=== PATIENT | female | born 1990 | race Caucasian/White ===

== ENCOUNTER 2023-02-26 14:56 | Outpatient (CLI) | payer OTHER, SELFPAY ==
[2023-02-26 15:22] VITALS: PULSE 81; O2SAT 97
[2023-02-26 15:26] VITALS: BP 111/73; PULSE 84
[2023-02-26 15:27] VITALS: PULSE 94; TEMP 36.6; O2SAT 97
[2023-02-26 16:21] LABS: Appearance Urine Cloudy (Clear); Bilirubin Urine Negative (Negative); Blood Urine Negative (Negative); Color Urine Yellow (Yellow); Glucose Urine Negative (Negative); Ketones Urine Negative (Negative); Leukocyte Esterase Urine Negative (Negative); Nitrite Urine Negative (Negative); Protein Urine Negative (Negative); Urobilinogen Urine 0.2 (0.2-1.0)
[2023-02-26 16:25] LABS: Clue Cells <20% Clue Cells Seen (None Seen); Trichomonas No Trichomonas Seen (None Seen); Yeast No Yeast Seen (None Seen)
[2023-02-26 16:30] LABS: RBC Urine 0-2 (0-2); Squamous Epithelial Cell Urine Few (None-Few)
[2023-02-26 16:31] LABS: Bacteria Urine Moderate
[2023-02-26 16:33] LABS: Amnisure Rom* Negative
--- NOTE | 2023-02-26 17:24 | PM.OBLDTN ---
OB - Triage/Final Diagnosis Visit Information Time Seen by Provider: 17:00 Date Seen: 02/26/23 Narrative: The patient is a 32 year old 3 para 0 at 31 weeks gestation who presents with question of leaking fluids. course is complicated by hyperemesis gravidarum, GERD, irritable bowel syndrome, interstitial cystitis, anxiety and depression. Litzy notes onset of increased thin and clear discharge for the last several days. She notes fluid will saturate her undergarments at time, but has not had a distinct gush. She denies any malodor or vulvovaginal itching/burning. She notes intermittent uterine cramps this morning, now resolved. She has baseline suprapubic pain that is most pronounced with a full bladder secondary to interstitial cystitis, which is ongoing but she additionally had some urinary urgency today. No fevers/chills, flank pain or worsening nausea/vomiting from her baseline with HG and GERD. No bowel concerns. No new sexual partners, no STI concerns. Evaluation Laboratory results: Laboratory Tests 02/26/23 Range/Units 15:32 Urine Color Yellow (Yellow) Urine Appearance Cloudy A (Clear) Urine pH 7.0 (5.0-8.5) Ur Specific [place] 1.020 (1.000-1.030) Urine Protein Negative (Negative) Urine Glucose (UA) Negative (Negative) Urine Ketones Negative (Negative) Urine Blood Negative (Negative) Urine Nitrite Negative (Negative) Urine Bilirubin Negative (Negative) Urine Urobilinogen 0.2 (0.2-1.0) Ur Leukocyte Esterase Negative (Negative) Urine RBC 0-2 (0-2) Urine WBC 2-5 (0-5) Ur Squamous Epith Cells Few (None-Few) Urine Bacteria Moderate A (None) Membrane Rupture Negative Vaginal Trichomonas No Trichomonas Seen (None Seen) Vaginal Yeast No Yeast Seen (None Seen) Vaginal Clue Cells <20% Clue Cells Seen (None Seen) Vital signs: Vital Signs - 24 hr 02/26/23 15:22 02/26/23 15:26 02/26/23 15:27 Temperature 97.9 F Pulse Rate 84 Blood Pressure 111/73 Pulse Oximetry 97 02/26/23 15:27 Temperature Pulse Rate Blood Pressure Pulse Oximetry 97 Comments: General: Alert and oriented, in no acute distress Psych: Appropriate mood and affect. Abdomen: Gravid. Otherwise soft and non-distended. Mild tenderness to palpation in the suprapubic region, patient notes this is her baseline. Pelvic: External genitalia within normal limits. Perineum dry. Sterile speculum exam performed, where there is small volume thin, white discharge in the vaginal vault. No malodor. Cervix appears pink with no cervicitis. Closed by visual inspection. No pooling or leaking of fluids with patient cough. UA: Bacteria present, but no significant WBC, leukocyte esterase or nitrites. Suspect skin contamination. Wet prep: Negative for yeast/trich. <20% clue cells suggests no BV. Amnisure: Negative NST: Reassuring for gestational age. Since variable deceleration noted early in monitoring period - normal baseline, moderate variability, accelerations present and no other decelerations. No contractions on tocometer Final Diagnosis (1) Vaginal discharge during in third trimester: Status: Acute Problem details: Ms. Crabtree is a 32yo seen at 31w3d GA for question of leaking of fluids. ANC complicated by hyperemesis gravidarum, GERD, anxiety, depression, IBS and interstitial cystitis. On exam, there is thin/white discharge in the vaginal vault that appears consistent with physiologic discharge of . No malodor or evidence of cervicitis. Wet prep negative for yeast, BV or trichomonas. Cervix appears closed, with no pooling of fluids nor fluid expression with patient cough. Amnisure negative. No evidence of PPROM nor vulvovaginitis on my exam today. With regard to her prior uterine cramping, baseline suprapubic pain and urinary urgency, UA is most consistent with skin contamination today by the presence of bacteria with 2-5 WBC and no leukocyte esterase or nitrites. Urine culture is pending, where we will call/prescribe treatment if this result is positive. Litzy notes her former cramping has resolved spontaneously, cervix appears closed and no contractions on tocometer. NST reassuring for gestational age. Recommend strict return precautions with new or worsening symptoms. If she notes persistent abnormal vaginal discharge, leaking of fluids, vaginal bleeding, contractions or decreased movement I recommend she call for urgent clinic add on visit vs return to triage. Patient expressed understanding and is comfortable with plan. (2) Hyperemesis: Status: Acute (3) GERD (gastroesophageal reflux disease): Status: Chronic (4) Irritable bowel syndrome: Status: Chronic Problem details: with constipation. Negative colonoscopy age 11. (5) Interstitial cystitis: Status: Acute
--- NOTE | 2023-02-26 19:05 | PC.OBNST ---
NST Note NST Note Start: 02/26/23 15:23 Freq: ONCE Status: Active Protocol: Document 02/26/23 19:02 MOSQUE (Rec: 02/26/23 19:05 MOSQUE [id number]) NST Note 3 Para (# of births) 0 EDC 04/27/23 Gestational Age In Weeks & Days 31 Weeks & 3 Days Patient Presented with Complaint(s) of Leaking fluid Other Complaints Patient had concerns about a watery discharge and some lower abdomen cramping occasionally Reactive Yes Appropriate for Gestational Age Yes SUSAN Peterson Date 02/26/23 Reactive Yes Appropriate for Gestational Age Yes SUSAN Whitaker Date 02/26/23 OB NST charge Yes Complete NST Note via Write Note Yes The provider's electronic signature indicates the NST is reactive/appropriate for gestational age. *Note to provider: If an addendum is required, open the patient's chart and click on the note under the Nurse/Allied Health tab.
== END 2023-02-26 17:30 | disposition home or self-care (01) ==
LOC: OB OUT 14:57 → OB 14:57
PROVIDERS: PCP Obstetrics & Gynecology; Visit Provider Obstetrics & Gynecology
DX: O47.03 False labor before 37 completed weeks of gestation, third trimester (principal); Z3A.31 31 weeks gestation of pregnancy
CPT/HCPCS: 59025; 81003; 81015; 84112; 87086; 87210; 99213

== ENCOUNTER 2023-03-07 08:17 | Outpatient (CLI) | payer OTHER, SELFPAY ==
--- NOTE | 2023-03-07 08:15 | CRLHL7_ITS ---
For Patients: As a result of the Century Cures Act, medical imaging exams and procedure reports are released immediately into your electronic medical record. You may view this report before your referring provider. If you have questions, please contact your health care provider. INDICATION: Third trimester scan, evaluate growth. COMPARISON: Report from 12/09/2022 TECHNIQUE: Real time corona scale imaging of the fetus was performed. FINDINGS: Sonographic imaging demonstrates a single living intrauterine gestation. Fetus demonstrates a regular cardiac rate of 137 beats per minute. Fetus has a vertex position. The placenta lies anterior fundal. Amniotic fluid volume appears normal and there is a single deepest vertical pocket: 6.0 cm. The estimated weight is 2357gm which lies at the 83rd %. BPD greater than 97th percentile. HC 93rd percentile. AC 90th percentile. FL 26th percentile. The HC/AC ratio measures 1.05 range (0.93-1.11). IMPRESSION: Sonographic gestational age 34 weeks 5 days and sonographic due date 04/13/2023. Sonographic age is 2 weeks ahead of the clinical age. Estimated weight 83rd percentile. Abdominal circumference 90th percentile. Dictated by Clifton Kebede MD @ 03/07/2023 12:11:47 PM (Electronically Signed)
== END 2023-03-07 08:18 | disposition home or self-care (01) ==
PROVIDERS: Visit Provider Obstetrics & Gynecology
DX: Z34.93 Encounter for supervision of normal pregnancy, unspecified, third trimester (principal); Z3A.34 34 weeks gestation of pregnancy
CPT/HCPCS: 76816; 82728; 86592

== ENCOUNTER 2023-03-25 22:18 | Outpatient (CLI) | payer OTHER, SELFPAY ==
[2023-03-25] VITALS (7 sets, daily range): BP systolic 128–145; BP diastolic 64–97; PULSE 64–75; O2SAT 98
--- NOTE | 2023-03-25 21:18 | PC.NURSE ---
Center telephone call greater than 37 weeks Date of call: [03/25/23] Time of call: [2104] Name of person calling: [Litzy Crabtree] Best phone # to reach you at: [] patient: G: [3] P: [0] EDC: [04/27/22] Gestational age: 35.3 weeks Provider: [Dr. Simental] Reason for calling (patient's words): [I have had a few weird symptoms today and I just figured I would call to see if I should come in or not. This morning when I woke up I had intestinal cramping but then I had a bowel movement and it got better. Then I had some one sided abdominal cramping but it was sporadic. I have also some burning in my lower pelvis, I'm not sure if it is my pubic symphysis or if my baby is sitting more on my bladder. I am wondering if I should come in and be seeen.] If patient is calling with the following complaints, instructed to come to Center for evaluation: Feels like water broke: [No] Regular contractions that are 5 min apart: [No] Bleeding that is bright red and similar to a menstrual period: [No] Decreased movement: [No] Temp >100.4: [No] Patient has a sense that something doesn't feel right: [No] Is patient having contractions: [No] Reviewed Signs of Labor: Uterine tightening or cramping that occurs at regular intervals. These typically occur at shorter and shorter intervals and may increase in intensity with time. Unlike [place] contractions, changes in activity should not make these symptoms go away. With true labor, the time between contractions will gradually shorten and the intensity gradually increases. Typical recommendation is coming to the hospital when contractions occur every 5 minutes or less and last for 60 seconds or more for 1 hour. If patient chooses to stay home, patient given comfort instructions and informed if symptoms stay the same or are worse after 1 hour come to Center. Comfort measures: Lie on left side, reset, drink bottle or large cup of water, monitor contractions for 1 hour. Patient verbalized understanding?: [Yes] Is patient coming for evaluation?: [Yes] Patient will head into center for evaluation and will be here in about 45 min from call. Telephone conversation guided by approved policy and flow chart, Telephone Calls From Patient's, approved at [place] perinatology Committee December 2022.
[2023-03-25 23:15] LABS: Appearance Urine Clear (Clear); Bilirubin Urine Negative (Negative); Blood Urine Negative (Negative); Color Urine Yellow (Yellow); Glucose Urine Negative (Negative); Ketones Urine Negative (Negative); Leukocyte Esterase Urine Negative (Negative); Nitrite Urine Negative (Negative); Protein Urine Negative (Negative); Urobilinogen Urine 0.2 (0.2-1.0)
--- NOTE | 2023-03-25 23:17 | CRLHL7_ITS ---
For Patients: As a result of the Century Cures Act, medical imaging exams and procedure reports are released immediately into your electronic medical record. You may view this report before your referring provider. If you have questions, please contact your health care provider. INDICATION: Thirty-five weeks with bilateral flank pain. TECHNIQUE: Ultrasound bilateral Renal. Scherer-scale and color Doppler sonographic images were acquired of the kidneys and urinary bladder. COMPARISON: None. FINDINGS: Right kidney: 14 cm. Normal echotexture and cortex. No stone or mass. Moderate hydronephrosis. Left kidney: 13 cm. Normal echotexture and cortex. No stone or mass. Mild hydronephrosis. IMPRESSION: Bilateral hydronephrosis is slightly worse on the right. This is likely related. No stone visualized. Dictated by Ras Balderrama MD @ 03/26/2023 2:14:45 AM (Electronically Signed)
[2023-03-25 23:45] LABS: Hematocrit 30.2 % (33.0-51.0); Hemoglobin* 9.6 gm/dL (12.0-16.0); Mean Corpuscular HGB Conc 32 gm/dL (32-36); Mean Corpuscular Hemoglobin 27 pg (26-34); Mean Corpuscular Volume 85 fL (80-100); Platelet Count* 203 K/uL (140-440); Red Blood Count 3.55 m/uL (4.00-5.20); White Blood Count* 9.04 K/uL (4.50-11.00)
[2023-03-25 23:49] LABS: Slide Review Reflex No
[2023-03-25 23:50] LABS: Total Protein Urine 37 mg/dL
[2023-03-25 23:51] LABS: Creatinine Urine 70.1 mg/dL
[2023-03-26 00:15] VITALS: BP 134/78; PULSE 53
[2023-03-26 00:16] LABS: Blood Urea Nitrogen* 6 mg/dL (5-24)
[2023-03-26 00:17] LABS: Alanine Aminotransferase* 18 U/L (4-35); Aspartate Amino Transferase* 26 U/L (12-35); Creatinine* 0.4 mg/dL (0.5-1.5); Estimated Glomerular Filt Rate 133 ml/min
[2023-03-26 00:31] VITALS: BP 114/61; PULSE 65
[2023-03-26 00:48] VITALS: BP 141/83; PULSE 64
[2023-03-26 00:59] VITALS: BP 142/92; PULSE 73
[2023-03-26] MEDS: ACETAMINOPHEN 500 MG TABLET 1000 MG PO (01:22)
--- NOTE | 2023-03-26 02:04 | PC.OBNST ---
NST Note NST Note Start: 03/25/23 22:32 Freq: ONCE Status: Active Protocol: Document 03/26/23 01:58 JACKELYN (Rec: 03/26/23 02:03 CYNDEEADDISON [id number]) NST Note 3 Para (# of births) 0 EDC 04/27/23 Gestational Age In Weeks & Days 35 Weeks & 3 Days Patient Presented with Complaint(s) of Pain If Pain, describe location pelvic pain in pubic symphysis Reactive Yes Appropriate for Gestational Age Yes RN Diane Billings RN Date 03/26/23 Reactive Yes Appropriate for Gestational Age Yes SUSAN Erazo RN Date 03/26/23 OB NST charge Yes Complete NST Note via Write Note Yes The provider's electronic signature indicates the NST is reactive/appropriate for gestational age. *Note to provider: If an addendum is required, open the patient's chart and click on the note under the Nurse/Allied Health tab.
== END 2023-03-26 01:34 | disposition home or self-care (01) ==
LOC: OB OUT 22:18 → OB 22:19
PROVIDERS: Visit Provider Obstetrics & Gynecology
DX: O13.3 Gestational [pregnancy-induced] hypertension without significant proteinuria, third trimester (principal); Z3A.37 37 weeks gestation of pregnancy
CPT/HCPCS: 36415; 59025; 76775; 81003; 82565; 82570; 84156; 84450; 84460; 84520; 85027; 99213; A9270

== ENCOUNTER 2023-03-26 14:33 | Outpatient (CLI) | payer OTHER, SELFPAY ==
[2023-03-27 22:11] LABS: Strep B DNA Probe Negative (Negative); Strep B Susceptibility Needed? No
== END 2023-03-26 14:34 | disposition home or self-care (01) ==
PROVIDERS: Visit Provider Obstetrics & Gynecology
DX: O13.3 Gestational [pregnancy-induced] hypertension without significant proteinuria, third trimester (principal)
CPT/HCPCS: 82565; 84450; 84460; 87081; 87653

== ENCOUNTER 2023-03-26 15:57 | Outpatient (CLI) | payer OTHER, SELFPAY ==
--- NOTE | 2023-03-26 16:00 | CRLHL7_ITS ---
For Patients: As a result of the Century Cures Act, medical imaging exams and procedure reports are released immediately into your electronic medical record. You may view this report before your referring provider. If you have questions, please contact your health care provider. INDICATION: -induced gestational hypertension. COMPARISON: OB ultrasound 03/07/2023. TECHNIQUE: Ultrasound OB pelvis with real time corona scale imaging and color Doppler analysis. FINDINGS: Sonographic imaging demonstrates a single living intrauterine gestation. The fetus has a regular cardiac rate of 152 beats per minute. The fetus has a cephalic orientation. The placenta lies anterior fundal. Amniotic fluid volume appears normal. The composite ultrasound gestational age is calculated at 37 weeks 4 days with an estimated sonographic due date of 04/12/2023. The estimated weight is 3329 grams which lies at the 97th percentile. The following biometric measurements were obtained: Biparietal diameter: 9.30 cm (37 weeks 6 days) (greater than 97th percentile) Head circumference: 32.95 cm (37 weeks 3 days) (69th percentile) Abdominal circumference: 34.82 cm (38 weeks 5 days) (greater than 97th percentile) Femur length: 7.02 cm (36 weeks 0 days) (59th percentile) The HC/AC ratio measures: 0.95 (range 0.91-1.05) BIOPHYSICAL PROFILE: Single deepest pocket measures 5.9 cm (2/2). The fetus was active (2/2). There was normal flexion and extension of the trunk and extremities (2/2). The fetus demonstrated normal breathing movements (2/2). IMPRESSION: 1. Single living intrauterine gestation in cephalic position with heart rate 152 beats per minute. 2. Ultrasound gestational age 37 weeks 4 days with sonographic due date 04/12/2023. The clinical gestational age is 35 weeks 3 days. 3. Estimated weight is 97th percentile. Biparietal diameter and abdominal circumference are greater than 97th percentile. 4. Normal biophysical profile score 8 out of 8. Dictated by Charline Ariza MD @ 03/26/2023 5:52:51 PM (Electronically Signed)
== END 2023-03-26 15:58 | disposition home or self-care (01) ==
LOC: US 15:57
PROVIDERS: Visit Provider Obstetrics & Gynecology
DX: O13.3 Gestational [pregnancy-induced] hypertension without significant proteinuria, third trimester (principal); Z3A.37 37 weeks gestation of pregnancy
CPT/HCPCS: 76816; 76819

== ENCOUNTER 2023-03-28 13:16 | Outpatient (CLI) | payer OTHER, SELFPAY ==
[2023-03-28 13:30] VITALS: BP 130/75; PULSE 72
[2023-03-28 14:03] VITALS: BP 135/74; PULSE 72
[2023-03-28 14:12] LABS: Hematocrit 32.2 % (33.0-51.0); Hemoglobin* 10.1 gm/dL (12.0-16.0); Mean Corpuscular HGB Conc 31 gm/dL (32-36); Mean Corpuscular Hemoglobin 27 pg (26-34); Mean Corpuscular Volume 85 fL (80-100); Platelet Count* 252 K/uL (140-440); Red Blood Count 3.77 m/uL (4.00-5.20); White Blood Count* 16.17 K/uL (4.50-11.00)
[2023-03-28 14:13] LABS: Slide Review Reflex No
[2023-03-28 14:19] VITALS: BP 136/80; PULSE 81
[2023-03-28 14:25] LABS: Alanine Aminotransferase* 22 U/L (4-35); Aspartate Amino Transferase* 28 U/L (12-35); Blood Urea Nitrogen* 8 mg/dL (5-24); Creatinine* 0.4 mg/dL (0.5-1.5); Estimated Glomerular Filt Rate 133 ml/min
[2023-03-28 14:43] LABS: Total Protein Urine 30 mg/dL
[2023-03-28 14:44] LABS: Creatinine Urine 84.7 mg/dL
--- NOTE | 2023-03-28 15:50 | PC.OBNST ---
NST Note NST Note Start: 03/28/23 15:39 Freq: ONCE Status: Active Protocol: Document 03/28/23 15:41 AVL (Rec: 03/28/23 15:49 AVL [id number]) NST Note 3 Para (# of births) 0 EDC 04/27/23 Gestational Age In Weeks & Days 35 Weeks & 5 Days High Risk Factors High Blood Pressure - Gestational Patient Presented with Complaint(s) of Other Other Complaints pt had high BP's at home this am Reactive Yes Appropriate for Gestational Age Yes SUSAN Moody RN Date 03/28/23 Reactive Yes Appropriate for Gestational Age Yes SUSAN Kerr RN Date 03/28/23 OB NST charge Yes Complete NST Note via Write Note Yes The provider's electronic signature indicates the NST is reactive/appropriate for gestational age. *Note to provider: If an addendum is required, open the patient's chart and click on the note under the Nurse/Allied Health tab.
== END 2023-03-28 14:43 | disposition home or self-care (01) ==
LOC: OB OUT 13:17 → OB 13:17
PROVIDERS: Visit Provider Obstetrics & Gynecology
DX: O13.3 Gestational [pregnancy-induced] hypertension without significant proteinuria, third trimester (principal); Z3A.35 35 weeks gestation of pregnancy
CPT/HCPCS: 36415; 59025; 82565; 82570; 84156; 84450; 84460; 84520; 85027; 99213

== ENCOUNTER 2023-03-31 09:00 | Outpatient (RCR) | payer OTHER, SELFPAY ==
--- NOTE | 2023-03-19 10:19 | URNOTE ---
Per Jesusita Flores at [phone], prior auth is not required for Dena ([id number]). [id number]
[2023-03-20 10:59] VITALS: BP 120/80; PULSE 74; RESP 16; TEMP 36.4; O2SAT 98
[2023-03-20] MEDS: LACTATED RINGERS 1000 ML 1,000 ML 250 ML IV (11:36)
[2023-03-20] MEDS: IRON SUCROSE COMPLEX 200 MG in 0.9 % SODIUM CHLORIDE 100 ml 440 MG IVPB (11:36)
[2023-03-20 12:00] VITALS: BP 115/78; PULSE 74; RESP 16; TEMP 37.2; O2SAT 98
[2023-03-20 12:30] VITALS: BP 117/76; PULSE 79; RESP 16; TEMP 37.3; O2SAT 97
[2023-03-24 13:56] VITALS: BP 127/78; PULSE 85; RESP 16; TEMP 36.6; O2SAT 99
[2023-03-24] MEDS: LACTATED RINGERS 1000 ML 1,000 ML IV (14:00)
[2023-03-24] MEDS: IRON SUCROSE COMPLEX 200 MG in 0.9 % SODIUM CHLORIDE 100 ml 440 MG IVPB (14:58)
[2023-03-26] MEDS: IRON SUCROSE COMPLEX 200 MG in 0.9 % SODIUM CHLORIDE 100 ml 440 MG IVPB (12:45)
[2023-03-26 12:55] VITALS: BP 130/75; PULSE 81; RESP 18; O2SAT 97
--- NOTE | 2023-03-28 14:23 | ONC.NURNOTE ---
Pt scheduled for Venofer today. Received call from Center saying pt is there under observation currently and will not be able to have infusion here. Center to review with provider whether they will give Venofer while she is over there. Reviewed for pt to call us Mon to sched remaining infusions as needed. Today's infusion appt cancelled.
[2023-03-28 14:55] VITALS: BP 133/90; PULSE 87; RESP 16; TEMP 36.9
[2023-03-28] MEDS: IRON SUCROSE COMPLEX 200 MG in 0.9 % SODIUM CHLORIDE 100 ml 440 MG IVPB (15:11)
[2023-03-28 15:57] VITALS: BP 123/81; PULSE 81; RESP 16; TEMP 36.6; O2SAT 97
[2023-03-31] MEDS: IRON SUCROSE COMPLEX 200 MG in 0.9 % SODIUM CHLORIDE 100 ml 440 MG IVPB (09:31)
[2023-03-31] MEDS: LACTATED RINGERS 1000 ML IV (09:51)
== END 2023-09-16 23:59 | disposition home or self-care (01) ==
LOC: CCIC 09:00
PROVIDERS: Referring Provider Obstetrics & Gynecology; Visit Provider Obstetrics & Gynecology
DX: O99.019 Anemia complicating pregnancy, unspecified trimester (principal); D50.9 Iron deficiency anemia, unspecified
CPT/HCPCS: 96360; 96374; 96376; J1756; J7120

== ENCOUNTER 2023-04-02 09:39 | Outpatient (CLI) | payer OTHER, SELFPAY ==
--- NOTE | 2023-04-02 09:45 | CRLHL7_ITS ---
For Patients: As a result of the Century Cures Act, medical imaging exams and procedure reports are released immediately into your electronic medical record. You may view this report before your referring provider. If you have questions, please contact your health care provider. INDICATION: GESTATIONAL HTN COMPARISON: none TECHNIQUE: Real time corona scale imaging of the fetus was performed. Without non-stress testing. FINDINGS: Sonographic imaging demonstrates a single living intrauterine gestation. Fetus demonstrates a regular cardiac rate of 147 beats per minute. Fetus has a vertex position. The amniotic fluid volume appears normal and there is a single deepest pocket measurement of 4.6 cm. The fetus was active and demonstrated normal breathing movements. There was normal flexion and extension of the trunk and extremities. IMPRESSION: Normal biophysical profile score of 8 out of 8. Dictated by Clifton Kebede MD @ 04/02/2023 10:48:02 AM (Electronically Signed)
== END 2023-04-02 09:40 | disposition home or self-care (01) ==
LOC: US 09:40
PROVIDERS: Visit Provider Obstetrics & Gynecology
DX: O16.9 Unspecified maternal hypertension, unspecified trimester (principal)
CPT/HCPCS: 76819; 82565; 84450; 84460

== ENCOUNTER 2023-04-05 16:25 | Inpatient (IN) | payer OTHER, SELFPAY ==
[2023-04-05] VITALS (9 sets, daily range): BP systolic 132–150; BP diastolic 80–92; PULSE 62–95; RESP 15–16; TEMP 36.6; O2SAT 97–99
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
[2023-04-05 18:55] LABS: Hematocrit 33.9 % (33.0-51.0); Hemoglobin* 10.9 gm/dL (12.0-16.0); Mean Corpuscular HGB Conc 32 gm/dL (32-36); Mean Corpuscular Hemoglobin 28 pg (26-34); Mean Corpuscular Volume 86 fL (80-100); Platelet Count* 198 K/uL (140-440); Red Blood Count 3.93 m/uL (4.00-5.20); White Blood Count* 9.51 K/uL (4.50-11.00)
[2023-04-05 18:56] LABS: Slide Review Reflex No
[2023-04-05] MEDS: miSOPROStoL 25 MCG/0.25 TABLET VAGINAL ×2 (19:10→22:24)
[2023-04-05 19:14] LABS: Alanine Aminotransferase* 14 U/L (4-35); Aspartate Amino Transferase* 23 U/L (12-35); Blood Urea Nitrogen* 8 mg/dL (5-24); Creatinine* 0.4 mg/dL (0.5-1.5); Estimated Glomerular Filt Rate 133 ml/min
[2023-04-06] VITALS (11 sets, daily range): BP systolic 117–149; BP diastolic 60–90; PULSE 56–100; RESP 16–18; TEMP 35.8–37
[2023-04-06] MEDS: miSOPROStoL 25 MCG/0.25 TABLET VAGINAL ×2 (01:06→05:45)
[2023-04-06] MEDS: hydrOXYzine pamoate 25 MG CAPSULE 100 MG PO (01:21)
[2023-04-06] MEDS: MORPHINE 10 MG/ML inj IM (01:22)
[2023-04-06] MEDS: CALCIUM CARBONATE 500 MG CHEW PO ×2 (01:33→20:11)
[2023-04-06] MEDS: ONDANSETRON 2 MG/ML inj 4 MG IV ×2 (05:52→20:59)
--- NOTE | 2023-04-06 12:54 | P.OBPN_ITS ---
Subjective Time Seen by Provider: 12:00 Date Seen: 04/06/23 Narrative: Litzy is a 32 yo Q1P4-7-7-2 woman at 37 0/7 weeks' gestation here for induction of labor for preeclampsia without severe features. Thus far, she has received 4 doses of vaginal misoprostol. She has had delay in placement twice due to frequency of contractions. She slept poorly overnight. She felt dizzy with morphine. She is feeling contractions, and some feel strong. Objective Exam: General: Pleasant, no acute distress Cervical exam: 1 cm / 50% / high / posterior / firm Vital Signs: Last Vital Signs Temp 98.2 F 04/06/23 11:00 Pulse 100 04/06/23 11:00 Resp 16 04/06/23 11:00 BP 137/90 H 04/06/23 11:00 Pulse Ox 97 04/05/23 23:00 Pelvic Exam Dilation (cm): 1 Effacement (%): 50 Station: -3 Comments: posterior, firm Contractions Contraction pattern: Regular Assessment Assessment: induction ongoing Status: Category l Heart Rate Baseline: 140 Senior [facility] Variability: Moderate (6-25) Monitor Accelerations: Absent Monitor Decelerations: None Tracing Comments: Category I Labor Progress: Minimal progress with cytotec Maternal Status: Preeclampsia without severe features. BPs mildly elevated. Plan Plan: Discussed continuation of Cytotec induction versus placement of Cook catheter with the patient. After consideration, she elects to proceed with placement of Cook catheter. Initially, placement was attempted using speculum. A short sterile Graves, followed by a long sterile Graves speculum, was placed and os was visualized. The angle of the cervix did not permit placement of the Cook catheter with the speculum in. The speculum was then removed and the Cook was ultimately placed blindly through the cervix but placement was successful. Intrauterine and intravaginal balloons were inflated with 50 cc of saline. Patient tolerated the procedure with difficulty but did very well.
[2023-04-06] MEDS: LACTATED RINGERS 1000 ML 1,000 ML 124 ML IV (16:02)
[2023-04-06] MEDS: OXYTOCIN 30 unit/500 ML in NS 30 UNIT/500 ML BAG IVPB (16:02)
[2023-04-07] VITALS (110 sets, daily range): BP systolic 92–148; BP diastolic 51–109; PULSE 54–146; RESP 16–30; TEMP 36.7–37.6; O2SAT 97–99
[2023-04-07] MEDS: LACTATED RINGERS 1000 ML 1,000 ML 119 ML IV (00:21)
[2023-04-07] MEDS: ROPIVACAINE 0.2% 100 ml 100 ML 12 MG EPIDURAL ×2 (03:54→11:41)
[2023-04-07] MEDS: LACTATED RINGERS 1000 ML 1,000 ML 600 ML IV (04:01)
[2023-04-07] MEDS: PHENYLEPHRINE 100 MCG/ML SYRINGE IVP ×3 (04:12→05:33)
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
[2023-04-07] MEDS: ONDANSETRON 2 MG/ML inj 4 MG IV ×2 (04:45→10:15)
[2023-04-07] MEDS: CALCIUM CARBONATE 500 MG CHEW PO (05:37)
[2023-04-07] MEDS: ePHEDrine sulfate 5 MG/ML inj 10 MG IVP (06:20)
--- NOTE | 2023-04-07 08:12 | P.OBPN_ITS ---
Subjective Time Seen by Provider: 08:12 Date Seen: 04/07/23 Narrative: Litzy's had a prolonged cervical ripening phase. She had misoprostol per protocol starting at 1900 on 04/15/2023. After 4 doses of misoprostol, patient was only 1/50/high and cook cath was placed at noon on 04/06/2023 and removed 12 hours later. Epidural placed at 0400. This AM, she was reported to be 4/75/ballotable by RN check at 0500. There was concern by RN about patient's continued pain with cervical exam. Discussed with patient about her pain control. She has minimal abdominal pain with contractions. Still able to move and feel her right leg with only minimal numbness. Left leg is heavier and more numbed. Objective Vital Signs: Last Vital Signs Temp 98.1 F 04/07/23 00:09 Pulse 70 04/07/23 08:10 Resp 16 04/07/23 00:09 BP 125/70 04/07/23 08:10 Pulse Ox 99 04/07/23 03:51 Pelvic Exam Dilation (cm): 4 Effacement (%): 75 Station: Ballotable Comments: Per RN exam at 0500. Contractions Monitor mode: External Contraction pattern: Regular Contraction intensity: Mild Pitocin Rate (mU/min): 5 Assessment Assessment: induction ongoing Station: -4 Status: Category l Heart Rate Baseline: 140 Long-Term Variability: Moderate (6-25) Monitor Accelerations: Present Monitor Decelerations: None Tracing Comments: Cat I tracing Labor Progress: Latent labor Maternal Status: Very uncomfortable with pelvic exam. I assessed her pain coverage with digital pressure at the vaginal fourchette. Feels that her perineum does not have any pain coverage. Deferred cervical check until anesthesia assessment. Discussed with Litzy, that the next step in her IOL is AROM. After that, we would just continue to titrate pitocin. We made plan for cervical exam and AROM when she's more comfortable. Plan Plan: - Will contact anesthesia team to interrogate epidural
[2023-04-07] MEDS: LACTATED RINGERS 1000 ML 1,000 ML 125 ML IV ×3 (09:39→23:10)
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
--- NOTE | 2023-04-07 14:50 | PM.OBPNL ---
Subjective Time Seen by Provider: 14:00 Date Seen: 04/07/23 Objective Vital Signs: Last Vital Signs Temp 98.7 F 04/07/23 13:10 Pulse 59 L 04/07/23 14:40 Resp 16 04/07/23 13:10 BP 123/66 04/07/23 14:40 Pulse Ox 99 04/07/23 03:51 Pelvic Exam Dilation (cm): 4 Effacement (%): 75 Station: Ballotable Contractions Monitor mode: External Contraction pattern: Regular Contraction intensity: Mild Pitocin Rate (mU/min): 15 Assessment Assessment: induction ongoing Station: -4 Status: Category l Heart Rate Baseline: 140 [facility] Variability: Moderate (6-25) Monitor Accelerations: Present Monitor Decelerations: None Plan Plan: - SVE exam overall unchanged. /ballotable. head slightly oblique to patient's right with big fluid pocket on the left. This was also confirmed via bedside ultrasound. Will reposition to left lateral decubitus position - Patient desires continued induction of labor at this time given that FHR has been category I
--- NOTE | 2023-04-07 16:34 | PM.OBPNL ---
Subjective Time Seen by Provider: 16:20 Date Seen: 04/07/23 Objective Vital Signs: Last Vital Signs Temp 98.6 F 04/07/23 15:00 Pulse 82 04/07/23 16:30 Resp 16 04/07/23 15:00 BP 136/89 04/07/23 16:30 Pulse Ox 99 04/07/23 03:51 Pelvic Exam Dilation (cm): 4 Effacement (%): 75 Station: -3 Contractions Monitor mode: External Contraction pattern: Regular Contraction intensity: Mild Pitocin Rate (mU/min): 18 Assessment Assessment: induction ongoing Station: -3 Amniotic Membrane Status: AROM (@1620. Fluid is slightly blood tinged but overall clear. ) Status: Category l Heart Rate Baseline: 130 [facility] Variability: Moderate (6-25) Monitor Accelerations: Present Monitor Decelerations: None Plan Plan: - Patient tolerated AROM with minimal discomfort. - Will continue active management of labor
[2023-04-07] MEDS: fentaNYL 100 MCG/2 ML inj 50 MCG IVP (19:48)
[2023-04-07] MEDS: LIDOCAINE 2% (PF) 5 ML VIAL 7 ML EPIDURAL (20:34)
[2023-04-07] MEDS: fentaNYL 100 MCG/2 ML inj EPIDURAL (20:34)
[2023-04-07 20:54] LABS: Basophils Percent Auto 0.2 % (0.0-3.0); Eosinophils Percent Auto 0.1 % (0.0-7.0); Hematocrit 36.2 % (33.0-51.0); Hemoglobin* 11.8 gm/dL (12.0-16.0); Immature Granulocytes Pct Auto 0.6 %; Lymphocytes Percent Auto 6.2 % (20-44); Mean Corpuscular HGB Conc 33 gm/dL (32-36); Mean Corpuscular Hemoglobin 28 pg (26-34); Mean Corpuscular Volume 86 fL (80-100); Monocytes Percent Auto 6.2 % (0.0-11.0); Neutrophils Percent Auto 86.7 % (42.0-72.0); Platelet Count* 194 K/uL (140-440); RDW Coefficient of Variation % 18.4 % (11.5-15.5); Red Blood Count 4.23 m/uL (4.00-5.20); White Blood Count* 16.68 K/uL (4.50-11.00)
[2023-04-07 21:05] LABS: Slide Review Reflex No
--- NOTE | 2023-04-07 21:15 | W.PM.VAGDEL1 ---
Procedure Delivery date: 04/07/23 Procedure Done: Global Procedure Details: Events: Pre-Eclampsia and Labor Induction Intrapartal Events: Labor Induction Delivery monitor: external FHT Laceration description: Perineal - 2nd Degree Delivery repair: Vicryl Estimated blood loss (mL): 150 Anesthesia type: Epidural Complications: Litzy is a 32 year-old admitted on 04/05/2023 at 36 and 6/7 weeks gestation for induction of labor due to pre-eclampsia. Cervical exam on admission was closed/thick/and high with membranes intact membrane in vertex presentation. GBS negative. AROM occurred at 1620 on 04/07/2023 with clear fluid. Labor Analgesia: Epidural/Fentanyl Pitocin: Yes Labor onset: 04/07/2023 at 1630 Complete: 04/07/2023 at 1847 Pushin04/07/2023 at 1847 heart tones during second stage were II with rare variable decelerations. Spontaneous recovery. Moderate variability and accelerations throughout second stage. At 1929 a viable female delivered in vertex OA presentation over intact perineum via spontaneous vaginal delivery. Infant was placed on maternal abdomen. Cord was clamped and cut after a 30-60 second delay. Nose and mouth were bulb suctioned. Infant weight: 3065. 7 at 1 minute and 9 at 5 minutes. Shoulder dystocia: No. Nuchal cord: No. Placenta was unable to be delivered with traction for over 30 minutes. Unable to be removed manually at bedside due to inadequate pain control. Anesthesia was called to redose epidural and she was given fentanyl 50 mcg x1. Despite these efforts, Litzy was still in pain and decision was made to proceed to the operating room for manual removal of the placenta, dilation and curettage. Complications: Retained placenta. Laceration(s): 2nd degree laceration, repaired with 2-0 Vicryl in the operating room (see operative note). Estimated blood loss: 150 mL. Sponge and needles counts are correct. Infant Gender: Female presentation: vertex Placental Delivery Description: Manual Removal (In the operating room) Cord Description: 3 Vessels
[2023-04-07] MEDS: cefOXitin 2 GM in 0.9 % SODIUM CHLORIDE Mini-bag 100 ML IVPB (21:58)
[2023-04-07] MEDS: 0.9 % SODIUM CHLORIDE 1000 ml 1,000 ML 75 ML IV (22:00)
[2023-04-07] MEDS: miSOPROStoL 800 MCG/4 TABLET PR (22:23)
--- NOTE | 2023-04-07 22:53 | W.ANESCHARGE ---
Anesthesia Charges Start Date/Time Anesthesia Start Date: 04/07/23 Anesthesia Start Time: 21:18 Stop Date/Time Anesthesia Stop Date: 04/07/23 Anesthesia Stop Time: 22:45 Summary Emergency: VETERINARY BACTERIOLOGIST
--- NOTE | 2023-04-07 23:21 | P.GYNPRC_ITS ---
Procedure Note Time Seen by Provider: 22:00 Date of procedure: 03/31/23 Pre-op diagnosis: Retained placenta Post-op diagnosis: same Anesthesia: GETA Complications: DILATION AND CURETTAGE PREOPERATIVE DIAGNOSIS: 1. Retained placenta POSTOPERATIVE DIAGNOSIS: Retained placenta PROCEDURE: 1. Exam under anesthesia 2. Manual removal of the placenta 3. Suction dilation and curettage - ultrasound guided 4. 2nd degree laceration repair SURGEON: Stefanie Kerr MD ANESTHESIA: General anesthesia FINDINGS: 1. Mobile anteverted/midline 2 cm below the umbilicus, no adnexal masses on EUA] 2. Swollen bilateral labia majora/perineum and hemorrhoids, normal appearing cervix, second-degree laceration without breaking and perineal skin. QUANTITATIVE BLOOD LOSS: 600 mL URINE OUTPUT: 300 mL COMPLICATIONS: None PREOP ANTIBIOTIC: 2g of cefoxitin SPECIMEN: 1. Retained placenta INDICATIONS: Litzy is a 32 yo G 3 P 0020, with retained placenta after spontaneous vaginal delivery. DESCRIPTION OF PROCEDURE: The patient was taken to the operating room where general anesthesia was administered. She was prepared and draped in normal sterile fashion in the dorsal lithotomy position in yellow fin, taking care to avoid lower extremity hyperextension, hyperflexion or compression. A surgical time-out was performed with the entire operative staff per protocol. Perioperative antibiotics were given. EUA revealed the above findings. Bladder was drained with a red rubber. Manual extraction with surgeon's hand was used to remove the bulk of the placenta. The majority of the placenta was removed in two large pieces. A speculum was placed in the patient's vagina and ring forceps was placed on the anterior lip of the cervix. The cervix did not need dilation to accommodate the 12 [place] suction curettage. The suction curettage was then inserted under direct visualization and ultrasound sonographic visualization. The uterus was then gently suction curetted and rotated to clear the uterus of retained placenta. This was performed until a gritty texture was noted and the uterus was cleared of all remaining products. There was minimal bleeding noted after the suction curettage was removed. The ring forceps was removed from the anterior lip of the cervix and excellent hemostasis was noted. Ultrasound performed at the end of the procedure showed only small amount of clots. Attention was then turned towards repairing her second-degree laceration. Second-degree laceration was repaired with a 2-0 Vicryl in a continuous locking manner without complications. All instruments were removed. Debrief performed per protocol and specimen reviewed. Specimen was sent to pathology. The patient tolerated the procedure well. Sponge, lap and needle counts were correct x 2. The patient was taken to the recovery room in stable condition. Hemostatic agent: 40 units of Pitocin, 1 g of TXA, 800 mcg of misoprostol
[2023-04-08] VITALS (14 sets, daily range): BP systolic 124–148; BP diastolic 76–89; PULSE 75–84; RESP 14–18; TEMP 36.8–37.7; O2SAT 97–98
[2023-04-08] MEDS: ACETAMINOPHEN 500 MG TABLET 1000 MG PO ×4 (01:23→19:53)
[2023-04-08] MEDS: IBUPROFEN 600 MG TABLET PO ×4 (04:06→22:51)
[2023-04-08 07:07] LABS: Hemoglobin* 9.7 gm/dL (12.0-16.0)
[2023-04-08] MEDS: DOCUSATE SODIUM 100 MG CAPSULE PO ×2 (07:44→22:51)
[2023-04-08] MEDS: FERROUS SULFATE 325 MG TABLET PO (07:44)
--- NOTE | 2023-04-08 08:11 | PM.OBPNVD1 ---
OB - PN:Subj Subjective Date Seen: 04/08/23 Patient comments OB post-: no complaints and tolerating diet status: feeding status: exclusively Narrative: The patient feels well.? The pain is well controlled with current medications.? She has no new complaints.? Urinary output is adequate and she is voiding without difficulty.? Has an improving appetite, is tolerating a general diet, is not yet passing flatus, and has not had a bowel movement.?She was encouraged to notify her nurse if she has not passed flatus by this afternoon. Has small amount of rubra lochia.? She is ambulating well.?She is and working on baby to latch to wake up. OB - PN: Obj Exam Physical Exam: Vital signs: Temp Pulse Resp BP Pulse Ox O2 Del Method 98.6 F 78 14 124/87 97 Room Air 04/08/23 04:12 04/08/23 04:12 04/08/23 04:12 04/08/23 04:41 04/08/23 04:12 04/08/23 04:12 Narrative: GENERAL APPEARANCE:? normal affect, alert, no distress? MOOD:? appropriate? CHEST:? clear to auscultation and percussion? HEART:? regular rate and rhythm? ABDOMEN:? soft, non-tender the uterine fundus is U/3 and is appropriate for the stage of recovery.? PERINEUM:? mild edema of the perineum, there is a 2nd that is healing well.? EXTREMITIES:? normal and no edema? OB - PN: Obj Data Labs Labs: Laboratory Results - last 24 hr 04/07/23 04/08/23 20:45 06:20 WBC 16.68 H RBC 4.23 Hgb 11.8 L 9.7 L Hct 36.2 MCV 86 MCH 28 MCHC 33 RDW Coeff of Garett 18.4 H Plt Count 194 Neut % (Auto) 86.7 H Lymph % (Auto) 6.2 L [place] % (Auto) 6.2 Eos % (Auto) 0.1 Baso % (Auto) 0.2 Neut # (Auto) 14.50 H Lymph # (Auto) 1.00 [place] # (Auto) 1.00 H Eos # (Auto) 0.00 Baso # (Auto) 0.00 Abs Immat Gran (auto) 0.10 Imm/Tot Granulo (auto) 0.6 OB - PN: A/P Delivery Assessment and Plan (1) Mild preeclampsia: Status: Acute (2) Lactating mother: Status: Acute (3) care following vaginal delivery: Status: Acute (4) Status post dilation and curettage: Problem details: retained placenta Status: Acute (5) Hyperemesis: Status: Acute Plan day: 1 Plan: routine care Comments: Anticipate discharge home tomorrow.
[2023-04-09] MEDS: ACETAMINOPHEN 500 MG TABLET 1000 MG PO (01:42)
[2023-04-09 01:44] VITALS: BP 130/88; PULSE 78; RESP 16; TEMP 36.6; O2SAT 98
[2023-04-09] MEDS: IBUPROFEN 600 MG TABLET PO ×2 (05:19→11:02)
--- NOTE | 2023-04-09 07:53 | P.DS_ITS ---
DS: Providers Provider Date Seen: 04/09/23 Date of admission: 04/05/23 16:25 Primary care physician: Not a Local Provider Admitting Clinician: Anh Simental MD Attending Physician on discharge: Marilou Vo CNM Date of Discharge: 04/09/23 DS: Diagnosis Discharge Diagnosis (1) care following vaginal delivery: Status: Acute (2) Lactating mother: Status: Acute (3) Status post dilation and curettage: Status: Acute Problem details: retained placenta (4) Mild preeclampsia: Status: Acute (5) Anemia affecting : Status: Acute Exam Narrative: Exam Narrative: GENERAL APPEARANCE: ?normal affect, alert, no distress MOOD: ?appropriate HEENT: normocephalic, neck supple, full ROM CHEST: ?Symmetrical chest wall movement. ?Normal respiratory effort. ?Clear to auscultation HEART: ?regular rate and rhythm ABDOMEN: ?soft, non-tender. Uterine fundus is firm, 1 below Umbilicus, Midline and is appropriate for the stage of recovery. ?Bowel sounds present. PERINEUM: ?mild edema of the perineum, there is a 2nd degree laceration that is healing well. EXTREMITIES: ?normal and no edema Const: Vital Signs, click to edit/add: Vital Signs - 24 hr 04/08/23 12:00 04/08/23 16:00 04/08/23 20:30 Temperature 98.3 F 98.5 F 98.8 F Pulse Rate [Pulse Oximeter] 78 76 79 Respiratory Rate 18 16 16 Blood Pressure [Le ft Arm] 131/85 133/89 144/81 H Pulse Oximetry 97 97 98 Oxygen Delivery Me thod Room Air Room Air 04/08/23 21:46 04/09/23 01:44 Temperature 98.4 F 97.9 F Pulse Rate [Pulse Oximeter] 75 78 Respiratory Rate 16 16 Blood Pressure [Le ft Arm] 128/83 130/88 Pulse Oximetry 98 98 Oxygen Delivery Me thod Room Air Room Air OB - DS: Summary Hospital Course Hospital Course: Litzy is a 32 y.o. who was admitted to [facility] for induction of labor for preeclampsia without severe features. ?She had an NVD complicated by retained placenta requiring manual removal and D&C. .?The patient feels well. ?The pain is well controlled with current medications. ?She has no new complaints. ?She is breast feeding and reports things are going well. She would like to see before discharge today. ? the patient has done well.? Vitals have been stable.? She has remained afebrile.? Has a good appetite, is tolerating a general diet. ?She is voiding without difficulty.? She is passing gas and has not had a bowel movement.?She has a history of constipation and is requesting a laxative/stool softener for help with this. She is ambulating and denies any dizziness.? Has Small amount of rubra lochia. ?She is undecided on what she will use for prevention. Peripartum Data delivery method: Vaginal Laceration description: Vaginal - 2nd Degree Procedures: Procedures Operation Date: 04/07/23 21:25 Actual Procedure Side Surgeon p Suction Dilatation & Curettage For Retained Placenta, Second Degree Laceration Repair Stefanieamor Kerr MD Procedures: D&C complications: none Gender: Female Discharge Plan: Home Status at Discharge Functional status at discharge: independent ambulation Overall status at discharge: patient is progressing back to baseline Time Spent with Patient Time attestation: Total time spent providing and/or coordinating discharge services: Time spent: Less than 30 minutes Discharge Plan Discharge Disposition: Home, Self-Care Date of Admission: 04/05/23 16:25 Attending Provider on Discharge: Marilou Vo Primary Care Provider: Provider,Not a Local Condition: Stable Anticipated Discharge Date/Time: 04/09/23 12:00 Discharge Medications: New acetaminophen 500 mg Tablet 1,000 mg PO Q6H PRNQty: 0 0RF ferrous sulfate 325 mg (65 mg iron) Tablet 325 mg PO Q OTHER DAY Qty: 60 1RF docusate sodium 100 mg Capsule 100 mg PO BID Qty: 90 2RF ibuprofen 600 mg Tablet 600 mg PO Q6H PRNQty: 60 0RF Continued omeprazole 10 mg capsule,delayed release(DR/EC) 10 mg PO ONCE senna 8.6 mg capsule 8.6 mg PO DAILY magnesium citrate 125 mg capsule 125 mg PO TID Rx Instructions: DOSE is 150 mg, RN couldn't find that dose in [facility] [facility] famotidine [Pepcid] 20 mg tablet 20 mg PO DAILY benfotiamine 150 mg capsule 300 mg PO QDAY Qty: 90 1RF Discontinued Unisom (doxylamine) 25 mg tablet 25 mg PO QHS PRN Patient Comments: patient takes 1/2 pill in the morning, 1/2 pill mid day and whole pill at hs. Discharge Orders: Discharge Order (Routine); Ordered 04/09/23 Ordered By: Marilou Vo Patient Education: OB High Blood Pressure DC, OB Over the Counter Medication Information, OB Vaginal/Breast Feeding Additional Instructions: Discharge instructions were reviewed with the patient including signs and symptoms of infection and home going medications Nothing vaginally for 6 weeks: no tampons or intercourse Off Work or School for 6 weeks Follow Up [facility] for a BP check 04/11/23 or 04/15/23? Home BP monitoring twice a day. Call with BP greater than or equal to 160/110 or consistent readings above 140/90. 2-week visit: discuss feeding concerns, review control options and screen for anxiety/depression. 6-week visit for an annual exam. consultation services are available to all mothers and babies for the first year after delivery.? To make an appointment, please call [phone]. Activity Level: Activity as Tolerated Discharge Diet: Regular Follow Up Appointments: Provider,Not a Local [Primary Care Provider] - [facility] [Provider Group] Forms: [employer] Info Instructions
[2023-04-09] MEDS: DOCUSATE SODIUM 100 MG CAPSULE PO (07:56)
[2023-04-09 08:00] VITALS: BP 116/69; PULSE 79; RESP 16; TEMP 36.4; O2SAT 98
== END 2023-04-09 12:18 | disposition home or self-care (01) | DRG 798 ==
PROVIDERS: Obstetrics & Gynecology; Admitting Provider Obstetrics & Gynecology; Visit Provider Obstetrics & Gynecology
DX: O14.04 Mild to moderate pre-eclampsia, complicating childbirth (principal); Z37.0 Single live birth; O73.0 Retained placenta without hemorrhage; Z3A.36 36 weeks gestation of pregnancy; O99.344 Other mental disorders complicating childbirth; F32.A Depression, unspecified; F41.9 Anxiety disorder, unspecified; O70.1 Second degree perineal laceration during delivery; O99.013 Anemia complicating pregnancy, third trimester; D64.9 Anemia, unspecified; K58.9 Irritable bowel syndrome, unspecified; O99.02 Anemia complicating childbirth; R11.2 Nausea with vomiting, unspecified; Z91.410 Personal history of adult physical and sexual abuse
CPT/HCPCS: 01965; 01967; 36415; 59200; 82565; 84450; 84460; 84520; 85018; 85025; 85027; 88307; 99140; A9270; C1726; J0330; J0694; J1100; J1885; J2270; J2371; J2405; J2590; J2704; J2795; J3010; J7030; J7120; S0020

== ENCOUNTER 2023-04-28 10:04 | Outpatient (CLI) | payer OTHER, SELFPAY ==
--- NOTE | 2023-04-28 17:00 | W.PM.LAC.MC ---
Consult Note - Mom Date of Visit Date of visit: 04/28/23 communications consultant: Malka Mello Visit Code: Visit Patient's Information Phone number: [phone] : 1 Para: 1 Allergies metoclopramide [From Reglan] Allergy (Mild, Verified 04/24/23 13:14) prochlorperazine [From Compazine] Allergy (Mild, Verified 04/24/23 13:14) Mother's Medical History: Medical History (Updated 04/24/23 @ 15:18 by Jessica Coy CNP) Pre-eclampsia, anxiety Delivery Information Delivery type: Vaginal Weeks Gestation: 37.1 Gestational Age: AGA Weight: 3.065 kg Discharge Weight: 2.922 kg Baby's Information Baby's Age at Visit: 21 days Baby's Provider or Clinic: Dr. Montanez Jaundice: No Reason for Consult Reason for Consult: difficulty latching Past Experience Past Experience: No Current Frequency of Day Feedings: every 2 - 3 hours with some cluster feedings around the clock Both Breasts: Yes Pumping Pumping: Yes (2 - 3 times/day) Quantity Pumped: 2 - 3 oz total each time Supplementing EMB Supplement: Yes (3 oz btls 2 - 3 times/day) Formula Supplement: No Baby Elimination Number of Wet Diapers a Day: 6 - 8/day Number of BM a Day: about 6 times/day, yellow and seedy Breast/Nipple Condition Breast Information: WNL Engorgement: No Onsite Pre-Feed weight: 3.49 kg Post-Feed weight: 3.542 kg Milk Transferred (mL): 52 Assessments/Interventions Assessments/Interventions: Met with mom and this now 3 week old ex- term AGA baby for consult. Mom reports baby is nursing every 2 - 3 hours, as well as cluster feeding randomly. She reports nursing is painful, although there was some improvement after we spoke on 04/25/23 and she worked on more of a nipple to nose latch and some jaw massage before nursing sessions. She has started pumping to give herself a break and gets 2 - 3 oz total each time. Dad has been supplementing with 3 - 4 three oz feedings every 24 hours. Breasts WNL- symmetrical with rounded lower quadrants, intramammary distance < 1.5 inches. Nipples are everted and don't flatten or retract on compression. Small bleb noted on right nipple, and previous fissure noted on the left but it's healing well. Nipples are not erythemic, scaly looking, or shiny but mom reports they're itchy. She also reports a burning or rubbing pain at the nipple throughout the feeding most of the time. She also has a pain shooting up into her breast while nursing and sometimes feels like it's radiating to her back. She denies this pain is worse after a feeding or overnight. Also denies any s/s of vasospasm. Baby was last seen by PCP on 04/25 and hasn't really gained anything since that visit, but has gained 30 grams/day since D/C. POC deny any caput/cephalohematoma at delivery. They state she prefers to turn her head to the left but has equal ROM when moving her extremities. Her palate is WNL. Her upper frenulum is a little tight as her lip is difficult to flange and her gums annie. She has a strong suck on a finger and her tongue easily extends past the gum line. There's quite a bit of canoeing when the tongue lateralizes. Her lower frenulum was difficult to visualize, posterior? No s/s of yeast seen on baby's tongue, cheeks, or gums. Mom latched baby to the right side in the football hold and she was quite uncomfortable. When she was coached to expose more of the lower areola and point nipple to nose she was able to latch baby on more comfortably. The session was comfortable until about chcf through when baby got a little more aggressive and then she reported a burning sensation. This was not relieved by re-latching her or trying a different position. Baby nursed about 10 minutes and when she unlatched the nipple wasn't misshapen. Mom offered the other side and the initial latch was improved but when baby got a little more aggressive it got more uncomfortable. Baby nursed another 10 - 15 minutes and when she was weighed had transferred 52 ml. Plan: 1. Suggested mom continue nursing baby ALD or at least every 3 - 4 hours. Offer both side and use the ideas above to get the widest latch. 2. OK to continue pumping 2 - 3 times/day, mom feels she has the correct flange size. 3. OK for dad to supplement with EBM when mom needs a break or if baby seems hungry after nursing (reviewed babies this age need 3 - 4 oz/feeding). 4. Gave exercise POC can try to help baby with tongue lateralization and extension. 5. Gave a few stretches they can try to help with ROM. 6. Suggested mom rinse nipples with a saline solution after feeding, gave ideas and handout for the nipple bleb. Will also send in a script in for lotrisone cream as she described several symptoms of yeast. 7. Gave handout on local dentists. If there's no improvement with the latch in a few weeks, could call for an evaluation. 8. Will fax not to PCP and f/u by phone to see how things are going. Will suggest nurse visit for a weight check or another pre and post feeding weight. Meds Home Medications and Allergies Home Medications Medication Instructions Recorded Confirmed Type magnesium citrate 125 mg capsule 125 mg PO TID 03/24/23 04/24/23 History sennosides 8.6 mg capsule (senna) 8.6 mg PO DAILY 03/24/23 04/24/23 History Allergies Allergy/AdvReac Type Severity Reaction Status Date / Time metoclopramide [From Reglan] Allergy Mild Verified 04/24/23 13:14 prochlorperazine Allergy Mild Verified 04/24/23 13:14 [From Compazine]
== END 2023-04-28 10:05 | disposition home or self-care (01) ==
PROVIDERS: Visit Provider Obstetrics & Gynecology
DX: Z39.1 Encounter for care and examination of lactating mother (principal)
CPT/HCPCS: G0463

== ENCOUNTER 2023-05-29 16:06 | Outpatient (CLI) | payer OTHER, SELFPAY ==
--- NOTE | 2023-05-29 16:22 | W.PM.LAC.MF ---
Follow-Up Note: Mom Date of visit Date of visit: 05/29/23 art sales consultant: Malka Mello Visit Code: Visit Patient's Information Allergies metoclopramide [From Reglan] Allergy (Mild, Verified 05/26/23 09:07) prochlorperazine [From Compazine] Allergy (Mild, Verified 04/24/23 13:14) Delivery Information Delivery type: Vaginal Weeks Gestation: 37.1 Gestational Age: AGA Weight: 3.065 kg Baby's Information Baby's Age at Visit: 7 weeks Medications: magnesium citrate 125 mg PO TID sennosides (senna) 8.6 mg PO DAILY Reason for Consult Reason for Consult: continued discomfort with nursing Current Frequency of Day Feedings: every 1 - 2 hours Frequency of Night Feedings: about every 3 hours Both Breasts: No Suck: not aggressive Latch: wide Length of Time: no more than 10 minutes Pumping Pumping: Yes (pumps after a morning feeding ) Quantity Pumped: 3 - 8 oz total each time Supplementing EMB Supplement: Yes (dad will sometimes give 3.5 oz bottle overnight) Formula Supplement: No Baby Elimination Number of Wet Diapers a Day: 8 - 10/24 hours Number of BM a Day: 1 - 2 times/day Onsite Pre-feed weight: 4.526 kg Post-Feed weight: 4.58 kg Milk Transferred (mL): 54 Assessments/Interventions Assessments/Interventions: Met with patient and her now 7 week old ex- term AGA baby for f/u . They were seen about a month ago for a painful latch and at that time mom described symptoms of a yeast infection. She reports that she tried the Lotrisone cream and was also prescribed fluconazole. This helped but did not completely resolve her symptoms and in the past week now that she's completed the course of the antifungal her symptoms are getting worse again. She reports her nipples are always tender and they feel sore after nursing or pumping; especially the left. Also states they're itchy. When baby is nursing and when the feeding is finished she reports a burning at the nipple and shooting pains into her breast that radiate to my back and down my arm. She denies any blanching of the nipples after nursing or pumping, and denies any discomfort with temperature changes. Nipples look a little pink and irritated but mom states that is their normal color. They aren't shiny, scaly, or cracked. Small milk bleb noted on the right that she hasn't been able to resolve. Baby has gained 33 grams/day since her last visit on 04/28/23. Per mom she took baby to the chiropractor and felt that made a difference in her latch, especially on her left side. Baby's mouth was re-assessed and her upper frenulum is tight and it's difficult to flange her upper lip. The tongue easily extends past the gum line when sucking on a finger, but she doesn't have an aggressive suck. The tongue isn't very coordinated when lateralizing and the lower frenulum was visualized, but could be posterior? No s/s of yeast on baby's cheeks, gum, or tongue. Mom also reports that baby has recently not been opening her mouth very wide when she attempts to latch her. She stated that baby is nursing every 1.5 - 2 hours during the day and will only go about 3 hours max overnight, unless dad gives a bottle. She's pumping to empty after a morning feeding and at night while dad bottle feeds. Mom is pretty exhausted. Patient latched baby to the left side, this latch was wide and comfortable, but baby had been a little more upset and per mom her mouth was open wider than usual. Baby nursed aggressively for a few minutes, but then started more of a pacifying suckle even with being bothered. When she came off, mom burped her and offered the left side again but baby was really only pacifying. After about a 10 minute total feeding she was weighed and had transferred 30 ml. Mom offered the right side and this time the latch wasn't as comfortable. Baby nursed aggressively for a few minutes then started to pacify, then after a few minutes more got upset and came off. Mom tried again using breast compression, but baby wasn't interested. She was weighed again and had transferred 24 ml for a total of 54 ml. Reviewed with mom that she is still reporting s/s of yeast and that sometimes a second round of fluconazole is needed. Also reviewed that baby's this age normally take 3 - 5 oz/feeding so while she's getting enough in a 24 hours period b/c her weight gain is right on track, she's not very aggressive at the breast and is snacking more that really eating. Plan: 1. Suggested mom continue to nurse during the day but try switching sides as soon as baby stops nursing aggressively. Switch back and forth a few times to see if this helps her stay interested and more aggressive. 2. Suggested she continue to have dad bottle feed baby overnight. She can get up to pump if needed, but ok to to skip a pumping if she's not uncomfortable. Continue the early childhood education instructor pump. Also suggested she use her wearable pump during the day if after a nursing session, she doesn't feel baby emptied her. 3. To help with her yeast symptoms: will contact provider to see if she's comfortable prescribing one more round of fluconazole, patient will dab nipples with vinegar/water mixture after every feeding (this may help with milk bleb as well), try reducing sugar and dairy in her diet, try a non antibacterial soap, start taking a probiotic. 4. For baby: mom was shown some exercises to hopefully help baby open her mouth wider and strengthen her suck, also suggested she take her back to the chiropractor, suggested she make an appointment with a pediatric dentist and handout given. If the other ideas resolve her issues, she can always cancel. 5. Will f/u by phone the week of 06/09. Meds Home Medications and Allergies Home Medications Medication Instructions Recorded Confirmed Type magnesium citrate 125 mg capsule 125 mg PO TID 03/24/23 05/26/23 History sennosides 8.6 mg capsule (senna) 8.6 mg PO DAILY 03/24/23 05/26/23 History Allergies Allergy/AdvReac Type Severity Reaction Status Date / Time metoclopramide [From Reglan] Allergy Mild Verified 05/26/23 09:07 prochlorperazine Allergy Mild Verified 04/24/23 13:14 [From Compazine]
== END 2023-05-29 16:07 | disposition home or self-care (01) ==
PROVIDERS: PCP Family Medicine; Visit Provider Physician Assistant
DX: Z39.1 Encounter for care and examination of lactating mother (principal)
CPT/HCPCS: G0463

== ENCOUNTER 2023-06-17 10:25 | Outpatient (CLI) | payer OTHER, SELFPAY | END 2023-06-17 10:26 | disposition home or self-care (01) | LOC: NFLDREF 07-02 16:28 | PROVIDERS: PCP Family Medicine; Referring Provider Family Medicine; Visit Provider Obstetrics & Gynecology | DX: O91.02 Infection of nipple associated with the puerperium (principal); B37.89 Other sites of candidiasis; N64.52 Nipple discharge | CPT/HCPCS: 87102 ==

== ENCOUNTER 2023-09-03 11:07 | Outpatient (CLI) | payer OTHER, SELFPAY | END 2023-09-03 11:08 | disposition home or self-care (01) | PROVIDERS: PCP Family Medicine; Visit Provider Obstetrics & Gynecology | DX: R53.83 Other fatigue (principal); Z83.49 Family history of other endocrine, nutritional and metabolic diseases; Z13.21 Encounter for screening for nutritional disorder; Z13.29 Encounter for screening for other suspected endocrine disorder | CPT/HCPCS: 82306; 84443 ==

== ENCOUNTER 2024-08-05 15:04 | Outpatient (CLI) | payer OTHER, SELFPAY | END 2024-08-05 15:05 | disposition home or self-care (01) | LOC: NFLDREF 08-11 01:49 | PROVIDERS: Visit Provider Obstetrics & Gynecology | DX: Z87.59 Personal history of other complications of pregnancy, childbirth and the puerperium (principal) | CPT/HCPCS: 84702 ==

== ENCOUNTER 2024-08-07 12:06 | Outpatient (CLI) | payer OTHER, SELFPAY | END 2024-08-07 12:07 | disposition home or self-care (01) | LOC: LAB 12:08 | PROVIDERS: Obstetrics & Gynecology; Visit Provider Obstetrics & Gynecology | DX: O36.80X0 Pregnancy with inconclusive fetal viability, not applicable or unspecified (principal); Z3A.01 Less than 8 weeks gestation of pregnancy | CPT/HCPCS: 36415; 84702 ==

== ENCOUNTER 2024-08-09 08:53 | Outpatient (CLI) | payer OTHER, SELFPAY | END 2024-08-09 08:54 | disposition home or self-care (01) | LOC: NFLDREF 08-11 02:50 | PROVIDERS: Visit Provider Obstetrics & Gynecology | DX: O20.0 Threatened abortion (principal); Z87.59 Personal history of other complications of pregnancy, childbirth and the puerperium; Z3A.01 Less than 8 weeks gestation of pregnancy | CPT/HCPCS: 84702 ==

== ENCOUNTER 2024-08-10 11:27 | Outpatient (CLI) | payer OTHER, SELFPAY ==
--- NOTE | 2024-08-10 11:30 | CRLHL7_ITS ---
For Patients: As a result of the Century Cures Act, medical imaging exams and procedure reports are released immediately into your electronic medical record. You may view this report before your referring provider. If you have questions, please contact your health care provider. OB ULTRASOUND LESS THAN 14 WEEKS, 08/10/2024 CLINICAL HISTORY: Spotting, slow rising HCG levels. COMPARISON: None. TECHNIQUE: Real time corona scale imaging of the fetus was performed transvaginal. FINDINGS: Imaging: TV. LMP: 06/23/2024. YEFRI by LMP: 03/30/2025. GA: 6 weeks 6 days. GEST SAC: .50, 5 weeks 2 days. YOLK SAC: 1.3 mm. RIGHT OV: 3.9 x 1.9 x 3.3 cm. CL. Within normal limits. LEFT OV: 2.6 x 1.9 x 1.7 cm. Within normal limits. IMPRESSION: 1. Intrauterine gestational sac is present measuring 5 mm, 5 weeks 2 days. Yolk sac is also present. No pole. 2. Incidental corpus luteal cyst right ovary. 3. Consider follow-up ultrasound in two week. Clifton Kebede M.D. Diagnostic Radiologist [email or web address] Transcribed: 1:18 pm DW/Dictated by: Clifton Kebede MD @ 08/10/2024 12:33:00 PM (Electronically Signed)
== END 2024-08-10 11:28 | disposition home or self-care (01) ==
LOC: US 11:27
PROVIDERS: Visit Provider Obstetrics & Gynecology
DX: O20.9 Hemorrhage in early pregnancy, unspecified (principal); O34.81 Maternal care for other abnormalities of pelvic organs, first trimester; N83.11 Corpus luteum cyst of right ovary; Z3A.01 Less than 8 weeks gestation of pregnancy
CPT/HCPCS: 76817

== ENCOUNTER 2024-08-10 11:35 | Outpatient (CLI) | payer OTHER, SELFPAY | END 2024-08-10 11:36 | disposition home or self-care (01) | LOC: NFLDREF 08-12 22:08 | PROVIDERS: Visit Provider Obstetrics & Gynecology | DX: O20.0 Threatened abortion (principal) | CPT/HCPCS: 80053 ==

== ENCOUNTER 2024-08-20 15:52 | Outpatient (CLI) | payer OTHER, SELFPAY | END 2024-08-20 15:53 | disposition home or self-care (01) | LOC: NFLDREF 19:53 | PROVIDERS: Visit Provider Obstetrics & Gynecology | DX: O03.9 Complete or unspecified spontaneous abortion without complication (principal) | CPT/HCPCS: 84702 ==

== ENCOUNTER 2025-02-24 14:31 | Outpatient (CLI) | payer OTHER, SELFPAY | END 2025-02-24 14:32 | disposition home or self-care (01) | PROVIDERS: Visit Provider Family Medicine | DX: R53.83 Other fatigue (principal); R14.0 Abdominal distension (gaseous); E55.9 Vitamin D deficiency, unspecified; F41.9 Anxiety disorder, unspecified; N80.9 Endometriosis, unspecified | CPT/HCPCS: 82306; 82728; 84439; 84443; 86376 ==